=== PATIENT | male | born 1965 | race Caucasian/White ===

== ENCOUNTER 2022-02-25 08:06 | Emergency (ER) | payer BC ==
[2022-02-25 09:01] LABS: #Basophils 0.1 10x3/uL (0.0-0.2); #Eosinphils 0.1 10x3/uL (0.0-0.5); #Monocytes 0.7 10x3/uL (0.0-1.1); #Neutrophils 6.2 10x3/uL (1.5-8.4); %Basophils 0.7 % (0.0-2.0); %Eosinophils 1.2 % (0.0-6.0); %Lymphocytes 12.8 % (18.0-47.0); %Neutrophils 76.1 % (40.0-75.0); Hemoglobin 15.8 g/dL (13.5-17.5); Mean Corpuscular HGB CONC 34.2 g/dL (32.0-36.0); Mean Corpuscular Hemoglobin 28.5 pg (27.0-33.0); Mean Corpuscular Volume 83.4 fl (81.2-95.1); Mean Platelet Volume 9.2 fl (7.4-10.4); Platelet Count 267 10x3/uL (150-450); Red Blood Cell (RBC) Count 5.54 10x6/uL (4.32-5.72); White Blood Cell (WBC) Count 8.2 10x3/uL (3.5-10.5)
[2022-02-25 09:12] LABS: SARS-CoV-2 NAA Rapid Test Not Detected (NotDetected)
[2022-02-25 09:25] LABS: ALT (SGPT) 20 U/L (8-55); AST (SGOT) 19 U/L (5-34); Albumin 4.4 g/dL (3.5-5.0); Alkaline Phosphatase 93 U/L (40-110); Anion Gap 17 mmol/L (10-20); BUN (Urea Nitrogen) 18 mg/dL (8.4-25.7); Bilirubin, Total 0.7 mg/dL (0.2-1.2); CK (CPK) 140 U/L (30-200); Calc. Creatinine Clearance 0 mL/min (70-130); Calcium 9.6 mg/dL (7.8-10.44); Carbon Dioxide 20 mmol/L (22-29); Chloride 104 mmol/L (98-107); Estimated GFR 57; Globulin 3.1 g/dL (2.4-3.5); Glucose 117 mg/dL (70-105); Lipase 28 U/L (8-78); Potassium 3.6 mmol/L (3.5-5.1); Protein, Total 7.5 g/dL (6.0-8.3); Sodium 137 mmol/L (136-145)
[2022-02-25 09:43] LABS: CKMB 0.9 ng/mL (0-6.6)
[2022-02-25] MEDS ORDERED: Nitroglycerin 2% Ointment 1 INCH/1 GM Packet ONE (11:57)
[2022-02-25] MEDS ORDERED: Aspirin Chewable 81 MG TAB ONE (11:57)
[2022-02-25] MEDS ORDERED: Enoxaparin Sodium 100 MG/ML SYRINGE ONE (11:57)
[2022-02-25] MEDS ORDERED: Metoprolol Tartrate 5 MG/5 ML VIAL ONE (12:33)
[2022-02-25] MEDS ORDERED: hydrALAZINE 20 MG/ML VIAL ONE (13:21)
[2022-02-25] MEDS ORDERED: Iopamidol 370 76% 100 ML VIAL ONE (13:21)
[2022-02-25 14:13] LABS: Troponin I 0.024 ng/mL (< 0.028)
== END 2022-02-25 20:23 | disposition home or self-care (01) ==
LOC: CSHERS 08:06
DX: I20.8 Other forms of angina pectoris (principal); R77.8 Other specified abnormalities of plasma proteins; B34.9 Viral infection, unspecified; Z20.822 Contact with and (suspected) exposure to COVID-19
CPT/HCPCS: 36415; 71045; 71275; 80053; 82550; 82553; 83690; 83880; 84484; 85025; 85379; 87804; 93005; 96372; 96374; 96375; J0360; J1650; Q9967; U0002